=== PATIENT | female | born 1975 | race Caucasian/White ===

== ENCOUNTER 2016-09-25 10:29 | Outpatient (CLI) | payer BC, MEDICAID | END 2016-09-25 11:25 | disposition home or self-care (01) | LOC: LC 10:29 | PROVIDERS: ATTEND Obstetrics & Gynecology | PROC: 4A1HXCZ Monitoring of Products of Conception, Cardiac Rate, External Approach (ICD-10-PCS; principal; 2016-09-25) | DX: O09.523 Supervision of elderly multigravida, third trimester (principal); Z3A.37 37 weeks gestation of pregnancy | CPT/HCPCS: 59025 ==

== ENCOUNTER 2016-10-08 08:40 | Inpatient (IN) | payer OTHER, MEDICAID ==
[2016-10-08 09:56] LABS: APPEARANCE,URINE CLOUDY; BILIRUBIN,URINE NEGATIVE (NEGATIVE); GLUCOSE, URINE NEGATIVE (NEGATIVE); KETONES,URINE 20 mg/dL (NEGATIVE); LEUKOCYTE ESTERASE,URINE TRACE (NEGATIVE); NITRITE,URINE NEGATIVE (NEGATIVE); PROTEIN,URINE 30 mg/dL (NEGATIVE); URINE SPECIFIC GRAVITY 1.024; UROBILINOGEN,URINE NEGATIVE mg/dL (<2.0)
[2016-10-08 10:14] LABS: URINE BARBITURATES SCREEN NEGATIVE; URINE METHADONE SCREEN NEGATIVE; URINE OPIATES LOW NEGATIVE; URINE PHENCYCLIDINE SCREEN NEGATIVE
[2016-10-08] MEDS ORDERED: RINGERS SOLUTION,LACTATED 1,000 ML IV PRN (11:32)
[2016-10-08] MEDS ORDERED: PENICILLIN G POTASSIUM 5,000,000 UNIT in DEXTROSE 5%-WATER 100 ML IV ONE (11:51)
[2016-10-08] MEDS ORDERED: MISOPROSTOL 0.2 MG TABLET ONE (11:53)
[2016-10-08] MEDS ORDERED: PENICILLIN G-K 5 MILLION UNIT VIAL ONE (11:53)
[2016-10-08] MEDS ORDERED: LIDOCAINE 1% INJ-PF (10 MG/ML) 30 ML SDV ONE (11:54)
[2016-10-08] MEDS ORDERED: OXYTOCIN/NORMAL SALINE 20 UNIT/1,000 ML RTUINJ ONE (11:54)
[2016-10-08 12:00] LABS: ABSOLUTE LYMPHOCYTES (AUTO) 0.9 10^3/uL (0.5-4.7); ABSOLUTE MONOCYTES (AUTO) 0.5 10^3/uL (0.1-1.4); ABSOLUTE NEUT (AUTO) 15.2 10^3/uL (1.7-8.2); BASOPHILS % (AUTO) 0.3 % (0-2); EOSINOPHILS % (AUTO) 0.1 % (0-6); HEMATOCRIT 37.1 % (36.0-47.0); HEMOGLOBIN 12.4 g/dL (12.0-15.5); HGB HCT DIFFERENCE 0.1; LYMPHOCYTES % (AUTO) 5.4 % (13-45); MEAN CORPUSCULAR HEMOGLOBIN 30.2 pg (27.0-33.4); MEAN CORPUSCULAR HGB CONC 33.5 g/dL (32.0-36.0); MEAN CORPUSCULAR VOLUME 90 fl (80-97); MONOCYTES % (AUTO) 3.1 % (3-13); RED BLOOD COUNT 4.11 10^6/uL (3.72-5.28); RED CELL DISTRIBUTION WIDTH 13.7 % (11.5-14.0); SEGMENTED NEUTROPHILS % (AUTO) 91.1 % (42-78); WHITE BLOOD COUNT 16.6 10^3/uL (4.0-10.5)
[2016-10-08] MEDS ORDERED: FENTANYL/BUPIVACAINE/NS/PF 0 MCG/0 ML RTUINJ EPI ONE (12:30)
[2016-10-08] MEDS ORDERED: PHENYLEPHRINE HCL INJ/PF 10 MG/1 ML SDV ONE (12:30)
[2016-10-08] MEDS ORDERED: EPHEDRINE SULFATE INJ 50 MG/1 ML AMPULE ONE (12:30)
[2016-10-08] MEDS ORDERED: FENTANYL CITRATE INJ/PF 100 MCG/2 ML AMPUL ONE (12:30)
[2016-10-08] MEDS ORDERED: BUPIVACAINE HCL 0.25 % INJ/PF (2.5 MG/1 ML) 30 ML VIAL ONE (12:30)
[2016-10-08] MEDS ORDERED: FENTANYL CITRATE INJ/PF 100 MCG/2 ML AMPUL IV PRN (12:34)
[2016-10-08] MEDS ORDERED: EPHEDRINE SULFATE INJ 50 MG/1 ML AMPULE IV PRN (12:34)
[2016-10-08] MEDS ORDERED: BUPIVACAINE HCL 0.25 % INJ/PF (2.5 MG/1 ML) 30 ML VIAL INFIL PRN (12:34)
[2016-10-08] MEDS ORDERED: BENZOIN/ALOE VERA/STORAX/TOLU TINCTURE 60 ML TP PRN (12:34)
[2016-10-08] MEDS ORDERED: FENTANYL/BUPIVACAINE/NS/PF 100 ML EPI PRN (12:34)
[2016-10-08] MEDS ORDERED: LIDOCAINE 1% INJ-PF (10 MG/ML) 30 ML SDV INJ PRN (12:35)
[2016-10-08] MEDS ORDERED: OXYTOCIN/NORMAL SALINE 1,000 ML IV PRN ×2 (12:35→15:35)
[2016-10-08] MEDS ORDERED: MISOPROSTOL 0.2 MG TABLET PR PRN (12:35)
[2016-10-08] MEDS ORDERED: IBUPROFEN 800 MG TABLET ONE (14:26)
[2016-10-08] MEDS ORDERED: DIPH/PERTUSS(ACELL)/TETANUS VAC/PF 0.5 ML SYR (>=10YO) IM PRN (15:35)
[2016-10-08] MEDS ORDERED: BENZOCAINE/MENTHOL AEROSOL SPRAY 56 ML TOP PRN (15:35)
[2016-10-08] MEDS ORDERED: DIBUCAINE 1% OINTMENT 28 GM TP PRN (15:35)
[2016-10-08] MEDS ORDERED: MEASLES,MUMPS&RUBELLA VACC/PF 0.5 ML VIAL SUBCUT PRN (15:35)
[2016-10-08] MEDS ORDERED: ACETAMINOPHEN WITH CODEINE #3 TABLET PO PRN ×2 (15:35→20:07)
[2016-10-08] MEDS ORDERED: ZOLPIDEM TARTRATE 5 MG TABLET PO PRN (15:35)
--- NOTE | 2016-10-08 16:20 | Admission Physical ---
Datetime Report Generated by CPN: 10/08/2016 16:20 CURRENT ADMISSION Chief Complaint: Uterine Contractions Indication for Induction: Not Applicable Admit Plan: Admit to Unit; Initiate Labor Protocol ALLERGIES Medication Allergies: No Medication Allergies: No Known Allergies (09/25/2016) Latex: No Latex Allergies OBSTETRICAL HISTORY EDC: 10/13/2016 00:00 : 5 Para: 4 Term: 4 : 0 SAB: 0 IAB: 0 Ectopic: 0 Livin Cesareans: 0 VBACs: 0 Multiple Births: 0 Gestational Diabetes: No Rh Sensitization: No Incompetent Cervix: No ALIDA: No Infertility: No ART Treatment: No Uterine Anomaly: No IUGR: No Hx Previous C/S: No Macrosomia: No Hx Loss/Stillborn: No PIH: No Hx : No Placenta Previa/Abruption: No Depression/PP Depression: No PTL/PROM: No Post Hemorrhage: No SEE RECORDS Alcohol: No Marijuana : No Cocaine: No Other Illicit Drugs: No Cigarettes: Never Smoker. 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 Heart Disease: No Hosp/Surgery: No Autoimmune Disorder: No Anesthetic Complications: No Kidney Disease: No Abnormal Pap Smear: No Neuro/Epilepsy: No Psychiatric Disorders: No Other Medical Diseases: No Hepatitis/Liver Disease: No Significant Family History: No Varicosities/Phlebitis: No Trauma/Violence : No Thyroid Dysfunction: No INFECTIOUS HISTORY Gonorrhea: No Genital Herpes: No Chlamydia: No Tuberculosis: No Syphilis: No Hepatitis: No HIV/AIDS Exposure: No Rash or Viral Illness: No HPV: No PHYSICAL EXAM General: Normal HEENT: Normal Neurologic: Normal Thyroid: Deferred Heart: Normal Lungs: Normal Breast: Deferred Back: Normal Abdomen: Normal Genitourinary Exam: Normal Extremities: Normal DTRs: Normal Pelvic Type: Adequate Vital Signs: Reviewed; Within Normal Limits VAGINAL EXAM Dilatation: 5 Effacement: 80 Station: -1 MEMBRANES Membranes: Intact FETUS A EGA: 39.2 Monitoring: External US FHR- Baseline: 140 Variability: Moderate 6-25bpm Accelerations: 15X15 FHR Category: Category II FHR Comments: Spontaneous 6 min deccel to 80's Presentation: Vertex Admit Comment: Will admit PLANS FOR LABOR AND DELIVERY Labor and Delivery: None Pain Management: Epidural Feeding Preference: Breast Benefit of Breast Feed Discussed: Yes INFORMED CONSENT Signature: with User ID: [email or web address]
[2016-10-08] MEDS: PENICILLIN G POTASSIUM 2,500,000 UNIT in DEXTROSE 5%-WATER 50 ML IV SCH ×2 (16:44→19:51)
[2016-10-08] MEDS: DOCUSATE SODIUM 100 MG CAPSULE PO SCH (17:03)
[2016-10-08] MEDS: FERROUS SULFATE 325 MG TABLET PO SCH (17:03)
[2016-10-08] MEDS: IBUPROFEN 800 MG TABLET PO SCH (21:11)
--- NOTE | 2016-10-08 21:56 | EKG REPORT ---
SEVERITY:- OTHERWISE NORMAL ECG - SINUS RHYTHM ATRIAL PREMATURE COMPLEX : Confirmed by: Geo Almaraz MD 08-Oct-2016 21:55:35
[2016-10-09] MEDS: IBUPROFEN 800 MG TABLET PO SCH ×3 (05:56→21:34)
[2016-10-09 07:51] LABS: HEMATOCRIT 36.2 % (36.0-47.0); HEMOGLOBIN 11.9 g/dL (12.0-15.5); HGB HCT DIFFERENCE -0.5; MEAN CORPUSCULAR HEMOGLOBIN 29.7 pg (27.0-33.4); MEAN CORPUSCULAR HGB CONC 32.8 g/dL (32.0-36.0); MEAN CORPUSCULAR VOLUME 90 fl (80-97); RED BLOOD COUNT 4.01 10^6/uL (3.72-5.28); WHITE BLOOD COUNT 13.6 10^3/uL (4.0-10.5)
--- NOTE | 2016-10-09 09:09 | PDOC PROGRESS REPORT ---
Subjective-OB Subjective: Post Delivery Day: 41 year old. Denies any needs at this time Doing well, holding baby, breast feeding, eating well, scant lochia, ambulating , voiding Physical Exam (OB) Vital Signs: Temp Pulse Resp BP Pulse Ox 98.2 F 62 16 120/72 100 10/09/16 07:45 10/09/16 07:45 10/09/16 07:45 10/09/16 07:45 10/09/16 07:45 Intake & Output 10/08/16 10/09/16 10/10/16 06:59 06:59 06:59 Intake Total 480 Balance 480 Weight 109.18 kg - PIH/Pre-Eclampsia DTR's: 2 + Clonus: Negative Headache: Absent Epigastric Pain: No Visual Changes: No - Lochia Lochia Amount: Scant < 10 ml Lochia Color: Rubra/Red - Abdomen Description: Tender, Soft Hernia Present: No Fundal Description: Firm, Midline Fundal Height: u/u - u/2 Objective-Diagnostic Laboratory: 10/09/16 07:12 10/08/16 10/08/16 10/08/16 08:55 11:49 11:49 WBC 16.6 H RBC 4.11 Hgb 12.4 Hct 37.1 MCV 90 MCH 30.2 MCHC 33.5 RDW 13.7 Plt Count 223 Seg Neutrophils % 91.1 H Lymphocytes % 5.4 L Monocytes % 3.1 Eosinophils % 0.1 Basophils % 0.3 Absolute Neutrophils 15.2 H Absolute Lymphocytes 0.9 Absolute Monocytes 0.5 Absolute Eosinophils 0.0 Absolute Basophils 0.0 Urine Color DARK YELLOW Urine Appearance CLOUDY Urine pH 6.0 Ur Specific Harlan 1.024 Urine Protein 30 H Urine Glucose (UA) NEGATIVE Urine Ketones 20 H Urine Blood NEGATIVE Urine Nitrite NEGATIVE Ur Leukocyte Esterase TRACE H Blood Type A POSITIVE Antibody Screen NEGATIVE 10/09/16 07:12 WBC 13.6 H RBC 4.01 Hgb 11.9 L Hct 36.2 MCV 90 MCH 29.7 MCHC 32.8 RDW 14.0 Plt Count 221 Seg Neutrophils % Lymphocytes % Monocytes % Eosinophils % Basophils % Absolute Neutrophils Absolute Lymphocytes Absolute Monocytes Absolute Eosinophils Absolute Basophils Urine Color Urine Appearance Urine pH Ur Specific Harlan Urine Protein Urine Glucose (UA) Urine Ketones Urine Blood Urine Nitrite Ur Leukocyte Esterase Blood Type Antibody Screen Assessment and Plan(PN) - Assessment and Plan (1) GBS (group B Streptococcus carrier), +RV culture, currently Is this a current diagnosis for this admission?: Yes (2) Normal vaginal delivery Is this a current diagnosis for this admission?: Yes - Time Spent with Patient Time with patient: Less than 15 minutes Medications reviewed and adjusted accordingly: Yes - Disposition Anticipated Discharge: Home Within: within 24 hours
[2016-10-09] MEDS: FERROUS SULFATE 325 MG TABLET PO SCH ×2 (09:46→17:58)
[2016-10-09] MEDS: PRENATAL VITAMIN W-O CA NO5/FE FUMARATE/FA CAPSULE PO SCH (09:47)
[2016-10-09] MEDS: SENNOSIDES/DOCUSATE 8.6-50 MG 1 EACH TABLET PO SCH (09:47)
[2016-10-09] MEDS: DOCUSATE SODIUM 100 MG CAPSULE PO SCH ×2 (09:47→17:58)
[2016-10-10] MEDS: IBUPROFEN 800 MG TABLET PO SCH ×2 (06:40→13:02)
[2016-10-10] MEDS: FERROUS SULFATE 325 MG TABLET PO SCH (08:48)
[2016-10-10] MEDS: PRENATAL VITAMIN W-O CA NO5/FE FUMARATE/FA CAPSULE PO SCH (08:49)
[2016-10-10] MEDS: SENNOSIDES/DOCUSATE 8.6-50 MG 1 EACH TABLET PO SCH (08:49)
[2016-10-10] MEDS: DOCUSATE SODIUM 100 MG CAPSULE PO SCH (08:49)
--- NOTE | 2016-10-10 10:06 | PDOC DISCHARGE SUMMARY ---
Final Diagnosis Discharge Date: 10/10/16 - Final Diagnosis (1) GBS (group B Streptococcus carrier), +RV culture, currently Is this a current diagnosis for this admission?: Yes (2) Normal vaginal delivery Is this a current diagnosis for this admission?: Yes Discharge Data - Discharge Medication Home Medications: No Home Medications 09/25/16 Reason(s) for Admission: Onset of Labor Procedures: NST Intrapartum Procedure(s): Spontaneous Vaginal Delivery Laceration-Degree: 1st - Diagnosis Test Laboratory: Temp Pulse Resp BP Pulse Ox 98.1 F 69 15 124/76 100 10/10/16 08:04 10/10/16 08:04 10/10/16 08:04 10/10/16 08:04 10/10/16 08:04 10/08/16 10/08/16 10/09/16 08:55 11:49 07:12 RBC 4.11 4.01 Hgb 12.4 11.9 L Hct 37.1 36.2 Urine Opiates Screen NEGATIVE - Discharge information/Instructions Discharge Activity: Activity As Tolerated Discharge Diet: Regular Disposition: HOME, SELF-CARE Follow up with: [facility] in: 4
[2016-10-10 10:45] VITALS: BP 120/72
--- NOTE | 2016-10-11 15:17 | Delivery Summary ---
Del Sum A-C Datetime Report Generated by CPN: 10/11/2016 15:17 DELIVERY PERSONNEL DELIVERY PERSONNEL: [phone] Delivery Doctor:: Param Brown, DO Labor and Delivery Nurse:: Fabi Linares RNletterset press set up operator Nurse:: Flakita Sher RN Extension Forester:: Rebecca Jeffrey RN Nursery Nurse:: Katarzyna Escalera RN Oracle Data Warehouse Developer/RISK ENGINEER: Anitha Haskins, OVER SHORT AND DAMAGE CLERK MATERNAL INFORMATION Delivery Anesthesia: None Medications After Delivery: Pitocin Drip 20 Units/1000ml NSS Estimated Blood Loss (ml): 250 Maternal Complications: None Provider Comments: of viable female in OP position Placenta delievered spontaneous and intact with 3v cord Fundus firm after Cytotec 1000mcg LABOR SUMMARY EDC: 10/13/2016 00:00 No. Babies in Womb: 1 Attempted: No Labor Anesthesia: None LABOR INFORMATION Reason for Induction: Not Applicable Oxytocin: N/A Group B Beta Strep: Positive Antibiotics # of Doses: 1 Name of Antibiotic Given: PCN Steroids Given: None Reason Steroids Not Administered: Not Applicable MEMBRANES Membranes Rupture Method: Artificial Rupture of Membranes: 10/08/2016 12:56 Length of Rupture (hr): 1.17 Amniotic Fluid Color: Bloody Amniotic Fluid Amount: Scant Amniotic Fluid Odor: None STAGES OF LABOR Stage 3 hr: 0 Stage 3 min: 3 VAGINAL DELIVERY Episiotomy: None Laceration Extension: N/A Other Laceration: clitoral Laceration Repair: Yes Laceration Repair Note: repaired with 3-0 chromic in usual fashion with good hemostasis BABY A INFORMATION Delivery Date/Time: 10/08/2016 14:06 Method of Delivery: Vaginal Born in Route : No : N/A Forceps: N/A Vacuum Extraction: N/A Shoulder Dystocia : No PRESENTATION/POSITION BABY A Presentation: Cephalic Cephalic Presentation: Vertex Vertex Position: Occiput posterior Breech Presentation: N/A PLACENTA INFORMATION BABY A Placenta Delivery Time : 10/08/2016 14:09 Placenta Method of Delivery: Spontaneous Placenta Status: Delivered SCORES BABY A Heart Rate 1 min: >100 bpm Resp Effort 1 min: Good Cry Reflex Irritability 1 min: Cough or Sneeze or Pulls Away Muscle Tone 1 min: Active Motion Color 1 min: Body Colliers, Extremities Blue Resuscitation Effort 1 min: Tactile Stimulation SCORE 1 MIN: 9 Heart Rate 5 min: >100 bpm Resp Effort 5 min: Good Cry Reflex Irritability 5 min: Cough or Sneeze or Pulls Away Muscle Tone 5 min: Active Motion Color 5 min: Body Colliers, Extremities Blue Resuscitation Effort 5 min: Tactile Stimulation SCORE 5 MIN: 9 INFORMATION BABY A Gestational Age at Delivery: 39.2 Gestational Status: Full Term- 39- 40.6 Weeks Infant Outcome : Liveborn Condition : Stable Infant Sex: Female IDENTIFICATION BABY A Infant Verification Date/Time: 10/08/2016 15:14 ID Band Number: [id number] Mother's Name Verified: Yes RN Verifying : HJuliette Hudson RN/HJuliette Linares RN WEIGHT/LENGTH BABY A Birthweight (gm): 2380 Weight (lb): 5 Weight (oz): 4 Infant Length (in): 18.50 Infant Length (cm): 46.99 CORD INFORMATION BABY A No. Cord Vessels: 3 Nuchal Cord : N/A ASSESSMENT BABY A Skin to Skin: Yes Skin to Skin: Yes Skin to Skin: Yes Skin to Skin: Yes Skin to Skin: Yes Skin to Skin Time (min): 20 BABY B INFORMATION : N/A SIGNATURES Signature: with User ID: [email or web address]
== END 2016-10-10 12:55 | disposition home or self-care (01) | DRG 775 ==
LOC: LC 08:40 → LR 11:33 → 2S 16:11
PROVIDERS: ADMIT Obstetrics & Gynecology; ATTEND Obstetrics & Gynecology
PROC: 10E0XZZ Delivery of Products of Conception, External Approach (ICD-10-PCS; principal; 2016-10-08)
PROC: 0HQ9XZZ Repair Perineum Skin, External Approach (ICD-10-PCS; 2016-10-08)
PROC: 10907ZC Drainage of Amniotic Fluid, Therapeutic from Products of Conception, Via Natural or Artificial Opening (ICD-10-PCS; 2016-10-08)
PROC: 4A1HXCZ Monitoring of Products of Conception, Cardiac Rate, External Approach (ICD-10-PCS; 2016-10-08)
DX: O99.824 Streptococcus B carrier state complicating childbirth (principal); O70.0 First degree perineal laceration during delivery; Z3A.39 39 weeks gestation of pregnancy; Z37.0 Single live birth
CPT/HCPCS: 36415; 80307; 81005; 85025; 85027; 86592; 86850; 86900; 86901; 88307; 93005; 93010; J2370; J2540; J2590; J3010; J3490

== ENCOUNTER 2017-08-30 14:33 | Emergency (ER) | payer MEDICAID, OTHER ==
[2017-08-30] MEDS ORDERED: NORMAL SALINE 1000 ML 1,000 ML IV ONE (15:14)
[2017-08-30] MEDS ORDERED: ACETAMINOPHEN 325 MG TABLET PO ONE (15:14)
--- NOTE | 2017-08-30 15:17 | ER Document Report ---
ED Medical Screen (RME) - General Chief Complaint: Fever Stated Complaint: RIGHT SIDE FLANK PAIN Time Seen by Provider: 08/30/17 15:08 Notes: 42-year-old female with history of chronic pyelonephritis presents emergency department complaining of shortness of breath, tightness in her chest, swelling in her legs for the past 2 weeks associated with right flank pain and fevers and chills, temperature was as high as 102.1 at home. Denies vomiting or diarrhea. Patient is concerned both for a flareup of her chronic pyelonephritis with possible sepsis as well as the possibility of congestive heart failure as her father has congestive heart failure and her daughter had congestive heart failure from pulmonary artery stenosis. TRAVEL OUTSIDE OF THE [place] IN LAST 30 DAYS: No - Related Data Allergies/Adverse Reactions: No Known Allergies Allergy (Verified 08/30/17 14:36) Past Medical History - General Information source: Patient - Social History Cigarette use (# per day): No Chew tobacco use (# tins/day): No Frequency of alcohol use: None Drug Abuse: None Family history: CAD Renal/ Medical History: Denies: Hx Peritoneal Dialysis Review of Systems - Review of Systems Constitutional: See HPI, Fever EENT: No symptoms reported Cardiovascular: See HPI Respiratory: See HPI Gastrointestinal: denies: Abdominal pain Genitourinary: See HPI, Flank pain Physical Exam - Vital signs Vitals: Temp Pulse BP Pulse Ox 100.6 F H 90 139/77 H 97 08/30/17 14:40 08/30/17 14:40 08/30/17 14:40 08/30/17 14:40 Interpretation: Febrile - General General appearance: Alert, Anxious In distress: Mild - HEENT Head: Normocephalic, Atraumatic Eyes: Normal Pupils: PERRL - Respiratory Respiratory status: No respiratory distress Chest status: Nontender Breath sounds: Normal Chest palpation: Normal - Cardiovascular Rhythm: Regular Heart sounds: Normal auscultation Murmur: No Course - Vital Signs Vital signs: Temp Pulse Resp BP Pulse Ox 100.6 F H 90 139/77 H 97 08/30/17 14:40 08/30/17 14:40 08/30/17 14:40 08/30/17 14:40 Doctor's Discharge - Discharge Referrals: COLLETTE ESCALANTE MD [Primary Care Provider] - Follow up as needed
[2017-08-30 16:05] LABS: HEMATOCRIT 34.5 % (36.0-47.0); HEMOGLOBIN 11.9 g/dL (12.0-15.5); MEAN CORPUSCULAR HEMOGLOBIN 29.3 pg (27.0-33.4); MEAN CORPUSCULAR HGB CONC 34.4 g/dL (32.0-36.0); MEAN CORPUSCULAR VOLUME 85 fl (80-97); PLATELET COUNT 156 10^3/uL (150-450); RED BLOOD COUNT 4.04 10^6/uL (3.72-5.28); RED CELL DISTRIBUTION WIDTH 13.4 % (11.5-14.0)
[2017-08-30 16:10] LABS: INTERNATIONAL RATION (INR) 0.96; PROTHROMBIN TIME 13.3 SEC (11.4-15.4)
[2017-08-30 16:23] LABS: ALANINE AMINOTRANSFERASE 33 U/L (9-52); ALBUMIN 3.4 g/dL (3.5-5.0); ALKALINE PHOSPHATASE 150 U/L (38-126); ANION GAP 12 (5-19); ASPARTATE AMINO TRANSFERASE 41 U/L (14-36); BILIRUBIN,DIRECT 0.9 mg/dL (0.0-0.4); BILIRUBIN,TOTAL 1.5 mg/dL (0.2-1.3); BLOOD UREA NITROGEN 10 mg/dL (7-20); CALCIUM 8.8 mg/dL (8.4-10.2); CARBON DIOXIDE 18 mmol/L (22-30); CHLORIDE 105 mmol/L (98-107); GLUCOSE 88 mg/dL (75-110); POTASSIUM 4.1 mmol/L (3.6-5.0); SODIUM 135.4 mmol/L (137-145); TOTAL PROTEIN 6.3 g/dL (6.3-8.2)
[2017-08-30 16:26] LABS: APPEARANCE,URINE CLOUDY; BILIRUBIN,URINE SMALL (NEGATIVE); GLUCOSE, URINE NEGATIVE (NEGATIVE); KETONES,URINE TRACE mg/dL (NEGATIVE); LEUKOCYTE ESTERASE,URINE MODERATE (NEGATIVE); NITRITE,URINE NEGATIVE (NEGATIVE); PROTEIN,URINE 100 mg/dL (NEGATIVE); URINE SPECIFIC GRAVITY 1.023
[2017-08-30 16:28] LABS: COLOR,URINE DARK YELLOW
--- NOTE | 2017-08-30 16:28 | RADIOLOGY REPORT (SQ) ---
EXAM DESCRIPTION: CHEST 2 VIEWS COMPLETED DATE/TIME: 08/30/2017 4:04 pm REASON FOR STUDY: fever, SOB COMPARISON: None. EXAM PARAMETERS: NUMBER OF VIEWS: two views TECHNIQUE: Digital Frontal and Lateral radiographic views of the chest acquired. RADIATION DOSE: NA LIMITATIONS: none FINDINGS: LUNGS AND PLEURA: No opacities, masses or pneumothorax. No pleural effusion. MEDIASTINUM AND HILAR STRUCTURES: No masses or contour abnormalities. HEART AND VASCULAR STRUCTURES: Heart normal size. No evidence for failure. BONES: No acute findings. HARDWARE: None in the chest. OTHER: No other significant finding. IMPRESSION: NO ACUTE RADIOGRAPHIC FINDING IN THE CHEST. TECHNICAL DOCUMENTATION: JOB ID: [id number] [employer]- All Rights Reserved Reading location - IP/workstation name: [email or web address]
[2017-08-30 16:34] LABS: NT PRO BNP 1880 pg/mL (<125); TROPONIN I < 0.012 ng/mL
[2017-08-30 16:44] LABS: ABSOLUTE LYMPHOCYTES# (MANUAL) 0.3 10^3/uL (0.5-4.7); ABSOLUTE MONOCYTES # (MANUAL) 0.3 10^3/uL (0.1-1.4); ABSOLUTE NEUTROPHILS# (MANUAL) 8.5 10^3/uL (1.7-8.2); BASOPHILS % (MANUAL) 0 % (0-2); EOSINOPHILS % (MANUAL) 0 % (0-6); LYMPHOCYTES % (MANUAL) 3 % (13-45); MONOCYTES % (MANUAL) 3 % (3-13); SEGMENTED NEUTROPHILS % (MAN) 94 % (42-78); TOTAL CELLS COUNTED 100
[2017-08-30 16:47] LABS: PLATELET COMMENT ADEQUATE; POLYCHROMASIA SLIGHT; TOXIC VACUOLATION PRESENT
[2017-08-30 17:21] LABS: VENOUS BLOOD BASE EXCESS -4.8 mmol/L; VENOUS BLOOD HCO3 18.4 mmol/L (20-32); VENOUS BLOOD PCO2 28.6 mmHg (35-63); VENOUS BLOOD PH 7.43 (7.30-7.42)
[2017-08-30] MEDS ORDERED: CEFTRIAXONE 2 GM/D5W RTU 2 GM/50 ML RTUPB IV ONE (19:13)
--- NOTE | 2017-08-30 19:18 | ER Document Report ---
ED General - General Chief Complaint: Fever Stated Complaint: RIGHT SIDE FLANK PAIN Time Seen by Provider: 08/30/17 15:08 Mode of Arrival: Ambulatory Information source: Patient Notes: This is a 42-year-old female with history of multiple pyelonephritis in the past (nonrecent) who presents to the emergency room with fever, right flank pain , shortness of breath, bilateral lower extremity swelling, nausea, vomiting and decreased p.o. intake. Patient is currently on no medicines and has no allergies. She does report starting her period today OBHx: last one year ago TRAVEL OUTSIDE OF THE [place] IN LAST 30 DAYS: No - HPI Onset: Just prior to arrival Onset/Duration: Gradual Quality of pain: Dull Severity: Moderate Pain Level: 2 Associated symptoms: Chills, Fever, Leg swelling, Nausea, Vomiting, Shortness of breath Exacerbated by: Denies Relieved by: Denies Similar symptoms previously: No Recently seen / treated by doctor: No - Related Data Allergies/Adverse Reactions: No Known Allergies Allergy (Verified 08/30/17 14:36) Past Medical History - General Information source: Patient - Social History Smoking Status: Never Smoker Cigarette use (# per day): No Chew tobacco use (# tins/day): No Frequency of alcohol use: None Drug Abuse: None Lives with: Family Family History: None Patient has suicidal ideation: No Patient has homicidal ideation: No - Past Medical History Cardiac Medical History: Reports: None Pulmonary Medical History: Reports: None EENT Medical History: Reports: None Neurological Medical History: Reports: None Endocrine Medical History: Reports: None Renal/ Medical History: Reports: Other - Pyelonephritis. Denies: Hx Peritoneal Dialysis Malignancy Medical History: Reports: None GI Medical History: Reports: None Musculoskeltal Medical History: Reports None Surgical Hx: Negative Review of Systems - Review of Systems Constitutional: Chills, Fever EENT: No symptoms reported Cardiovascular: Dyspnea, Edema Respiratory: Short of breath Gastrointestinal: No symptoms reported Genitourinary: No symptoms reported Female Genitourinary: See HPI Musculoskeletal: No symptoms reported Skin: No symptoms reported Hematologic/Lymphatic: No symptoms reported Neurological/Psychological: No symptoms reported Physical Exam - Vital signs Vitals: Temp Pulse BP Pulse Ox 100.6 F H 90 139/77 H 97 08/30/17 14:40 08/30/17 14:40 08/30/17 14:40 08/30/17 14:40 Notes: Physical exam: GENERAL: 42-year-old female, alert and oriented 3, appears ill, blood pressure 135/78, O2 sat 99% on room air, heart rate 87, respiratory rate 27, temperature 100.6 orally HEAD: Atraumatic, normocephalic. EYES: Pupils equal round and reactive to light, extraocular movements intact, sclera anicteric, conjunctiva are normal. ENT: TMs normal, nares patent, oropharynx clear without exudates. Moist mucous membranes. NECK: Normal range of motion, supple without obvious mass or JVD. LUNGS: Breath sounds clear to auscultation bilaterally and equal. No wheezes rales or rhonchi. HEART: Regular rate and rhythm without murmurs, rubs or gallops. ABDOMEN: Soft, normoactive bowel sounds. Patient does have right flank pain to palpation without rebound. No masses appreciated. EXTREMITIES: Normal range of motion, no pitting or edema. No clubbing or cyanosis. NEUROLOGICAL: Cranial nerves II through XII grossly intact. Normal speech, moving all extremities. PSYCH: Normal mood, normal affect. SKIN: Warm, Dry, normal turgor, no rashes or lesions noted. Bedside ultrasound: No hydronephrosis on the right. Uterus is obviously enlarged and appears to have molar . I have discussed my concern for molar with the patient and will obtain a formal ultrasound. Additionally, I have added a beta quant to the labs. Course - Re-evaluation Re-evalutation: 08/30/17 23:39 Note: I spoke to the lab and the beta quant is greater than 1 million. I have reviewed the formal ultrasound and discussed my concerns with the radiologist. CTA of the chest shows no pulmonary emboli but there are multiple nodular lesions concerning for metastatic choriocarcinoma. 08/30/17 23:41 I discussed case with the satellite instruction facilitator here (Dr. Mike Hoskins) who recommends transfer to a tertiary care center because of concerns for metastatic choriocarcinoma. Patient has received IV ceftriaxone for pyelonephritis. Blood and urine cultures have been sent. CT of the abdomen showed no obstructive uropathy. I have discussed the findings and the concerns of cancer with the patient. She is agreeable for transfer to [place] ([facility]). I have spoken to Dr. Alfredo about the case who is willing to accept the patient in transfer to [place]. - Vital Signs Vital signs: Temp Pulse Resp BP Pulse Ox 100.6 F H 90 26 H 133/76 H 96 08/30/17 14:40 08/30/17 14:40 08/30/17 23:01 08/30/17 23:01 08/30/17 23:01 - Laboratory Result Diagrams: 08/30/17 15:32 08/30/17 15:32 Laboratory results interpreted by me: 08/30/17 08/30/17 08/30/17 15:32 15:32 15:32 Hgb 11.9 L Hct 34.5 L Seg Neuts % (Manual) 94 H Lymphocytes % (Manual) 3 L Abs Neuts (Manual) 8.5 H Abs Lymphs (Manual) 0.3 L VBG pH VBG pCO2 VBG HCO3 Sodium 135.4 L Carbon Dioxide 18 L Total Bilirubin 1.5 H Direct Bilirubin 0.9 H AST 41 H Alkaline Phosphatase 150 H NT-Pro-B Natriuret Pep Albumin 3.4 L Serum HCG, Qual POSITIVE H Beta HCG, Quant Urine Protein Urine Ketones Urine Blood Urine Bilirubin Urine Urobilinogen Ur Leukocyte Esterase 08/30/17 08/30/17 08/30/17 15:32 15:32 15:47 Hgb Hct Seg Neuts % (Manual) Lymphocytes % (Manual) Abs Neuts (Manual) Abs Lymphs (Manual) VBG pH VBG pCO2 VBG HCO3 Sodium Carbon Dioxide Total Bilirubin Direct Bilirubin AST Alkaline Phosphatase NT-Pro-B Natriuret Pep 1880 H Albumin Serum HCG, Qual Beta HCG, Quant 9545837.00 H Urine Protein 100 H Urine Ketones TRACE H Urine Blood LARGE H Urine Bilirubin SMALL H Urine Urobilinogen 4.0 H Ur Leukocyte Esterase MODERATE H 08/30/17 17:00 Hgb Hct Seg Neuts % (Manual) Lymphocytes % (Manual) Abs Neuts (Manual) Abs Lymphs (Manual) VBG pH 7.43 H VBG pCO2 28.6 L VBG HCO3 18.4 L Sodium Carbon Dioxide Total Bilirubin Direct Bilirubin AST Alkaline Phosphatase NT-Pro-B Natriuret Pep Albumin Serum HCG, Qual Beta HCG, Quant Urine Protein Urine Ketones Urine Blood Urine Bilirubin Urine Urobilinogen Ur Leukocyte Esterase - Diagnostic Test Radiology reviewed: Image reviewed, Reports reviewed - Pelvic ultrasound suggestive of molar . CTA shows no pulmonary emboli but does show multiple nodular lesions concerning for metastatic choriocarcinoma. CT of the abdomen and pelvis reveals large mass of the uterus - EKG Interpretation by Me Rate: Normal Rhythm: NSR - EKG shows normal sinus rhythm with a ventricular rate of 78, no acute ST-T wave changes Critical Care Note - Critical Care Note Total time excluding time spent on procedures (mins): 90 Discharge - Discharge Clinical Impression: Metastatic choriocarcinoma, Acute pyelonephritis Condition: Stable Disposition: [facility] Referrals: COLLETTE ESCALANTE MD [Primary Care Provider] - Follow up as needed
--- NOTE | 2017-08-30 20:17 | RADIOLOGY REPORT (SQ) ---
EXAM DESCRIPTION: U/S OB LIMITED COMPLETED DATE/TIME: 08/30/2017 8:04 pm REASON FOR STUDY: flank pain, hcg positive COMPARISON: None. TECHNIQUE: Dynamic and static grayscale images acquired of the pelvis via transabdominal approach an d recorded on PACS. Additional selected color Doppler and spectral images recorded. LIMITATIONS: Body wall acoustics. FINDINGS: UTERUS: Poorly visualized. Enlarged. ENDOMETRIAL STRIPE: Significantly thickened with cystic appearance. CERVIX: Not visualized. RIGHT OVARY AND DOPPLER: Ovary not visualized. LEFT OVARY AND DOPPLER: Ovary not visualized. FREE FLUID: None noted. OTHER: No other significant finding. MEASUREMENTS: UTERUS: Reported to measure 18.3 x 16.2 x 11.1 cm however these measurements are not documented on th e images. ENDOMETRIAL STRIPE: 8.4 cm. RIGHT OVARY: Not visualized. LEFT OVARY: Not visualized. IMPRESSION: SIGNIFICANTLY LIMITED TRANSABDOMINAL PELVIC ULTRASOUND. IMAGES APPEAR TO DEMONSTRATE MA RKED CYSTIC THICKENING OF THE ENDOMETRIAL CAVITY. GIVEN REPORTED HISTORY OF POSITIVE HCG LEVEL THIS COULD REPRESENT A MOLAR . RECOMMEND CORRELATION WITH PATIENT'S ACTUAL BETA HCG LEVEL. TECHNICAL DOCUMENTATION: JOB ID: [id number] [employer]- All Rights Reserved Rev-08/10 Reading location - IP/workstation name: [email or web address]
[2017-08-30] MEDS ORDERED: MORPHINE SULFATE 10 MG/ML INJ IV ONE (21:43)
[2017-08-30] MEDS ORDERED: IBUPROFEN 600 MG TABLET PO ONE (21:43)
[2017-08-30] MEDS ORDERED: ONDANSETRON HCL INJ/PF 4 MG/2 ML SDV IV ONE (21:44)
--- NOTE | 2017-08-30 22:29 | RADIOLOGY REPORT (SQ) ---
EXAM DESCRIPTION: CTA CHEST COMPLETED DATE/TIME: 08/30/2017 10:16 pm REASON FOR STUDY: r/o pe COMPARISON: None. TECHNIQUE: CT scan of the chest performed using helical scanning technique with dynamic intravenous contrast injection. Images reviewed with lung, soft tissue and bone windows. Reconstructed coronal and sagittal MPR images reviewed. Additional 3 dimensional post-processing performed to develop Maximal Intensity Projection images ([place] P). All images stored on PACS. All CT scanners at this facility use dose modulation, iterative reconstruction, and/or weight based d osing when appropriate to reduce radiation dose to as low as reasonably achievable (ALARA). [facility]: Dose Right [facility]: CareDose [facility]: Dose Right [facility]: Teradose 4D [facility]: [employer] CONTRAST TYPE AND DOSE: 28 mL Isovue 370- low osmolar. Contrast bolus optimized for the pulmonary arteries. Not diagnostic for the aorta. RENAL FUNCTION: None required. The patient is less than 50 years old. RADIATION DOSE: . LIMITATIONS: Timing of contrast bolus and respiratory motion. FINDINGS: LUNGS AND PLEURA: Innumerable low density pulmonary nodules scattered throughout both the right and left lung measuring up to 13 mm highly suspicious for metastatic disease. AORTA AND GREAT VESSELS: No aneurysm. Contrast bolus not optimized for the aorta. HEART: No pericardial effusion. No significant coronary artery calcifications. PULMONARY ARTERIES: No central pulmonary embolus. Nondiagnostic evaluation of lobar, segmental, and subsegmental branches. HILAR AND MEDIASTINAL STRUCTURES: No identified masses or abnormal nodes. HARDWARE: None in the chest. UPPER ABDOMEN: See separate report of the CT of the abdomen. THYROID AND OTHER SOFT TISSUES: No masses. No adenopathy. BONES: No acute or significant finding. 3D MIPS: Confirm above findings. OTHER: No other significant finding. IMPRESSION: NO CENTRAL PULMONARY EMBOLUS IDENTIFIED. NUMEROUS BILATERAL PULMONARY NODULES HIGHLY SUSPICIOUS FOR METASTATIC CHORIOCARCINOMA GIVEN PATIENT'S KNOWN MARKEDLY ELEVATED BETA HCG LEVEL AND ABNORMAL ENDOMETRIAL FINDINGS. COMMENT: Quality ID # [id number]: Final reports with documentation of one or more dose reduction techniques (e.g., Automated exposure control, adjustment of the mA and/or kV according to patient size, use of iterative reconstruction technique) TECHNICAL DOCUMENTATION: JOB ID: [id number] [employer]- All Rights Reserved Reading location - IP/workstation name: [email or web address]
--- NOTE | 2017-08-30 22:34 | RADIOLOGY REPORT (SQ) ---
EXAM DESCRIPTION: CT ABD/PELVIS WITH IV ONLY COMPLETED DATE/TIME: 08/30/2017 10:16 pm REASON FOR STUDY: Suspected right pyelo with a molar preg COMPARISON: None. TECHNIQUE: CT scan of the abdomen and pelvis performed using helical scanning technique with dynamic intravenous contrast injection. No oral contrast. Images reviewed with lung, soft tissue, and bone windows. Reconstructed coronal and sagittal MPR images reviewed. Delayed images for evaluation of the urinary system also acquired. All images stored on PACS. All CT scanners at this facility use dose modulation, iterative reconstruction, and/or weight based d osing when appropriate to reduce radiation dose to as low as reasonably achievable (ALARA). [facility]: Dose Right [facility]: CareDose [facility]: Dose Right [facility]: Teradose 4D [facility]: [employer] CONTRAST TYPE AND DOSE: contrast/concentration: Isovue 370.00 mg/ml; Total Contrast Delivered: 75.0 ml; Total Saline Delivered: 70.0 ml RENAL FUNCTION: None required. The patient is less than 50 years old. RADIATION DOSE: CT Rad equipment meets quality standard of care and radiation dose reduction techniq ues were employed. CTDIvol: 14.9 - 28.2 mGy. DLP: 3577 mGy-cm.. LIMITATIONS: None. FINDINGS: LOWER CHEST: See separate report of the CT of the chest. LIVER: Normal size. No masses. No dilated ducts. SPLEEN: Normal size. No focal lesions. PANCREAS: No masses. No significant calcifications. No adjacent inflammation or peripancreatic fluid collections. Pancreatic duct not dilated. GALLBLADDER: No identified stones by CT criteria. No inflammatory changes to suggest cholecystitis. ADRENAL GLANDS: No significant masses or asymmetry. RIGHT KIDNEY AND URETER: Heterogeneous enhancement compatible with pyelonephritis. No solid masses. No significant calcifications. No hydronephrosis or hydroureter. LEFT KIDNEY AND URETER: No solid masses. No significant calcifications. No hydronephrosis or hydr oureter. AORTA AND VESSELS: No aneurysm. No dissection. Renal arteries, SMA, celiac without stenosis. RETROPERITONEUM: No retroperitoneal adenopathy, hemorrhage or masses. BOWEL AND PERITONEAL CAVITY: No masses or inflammatory changes. No free fluid or peritoneal masses. APPENDIX: Not visualized. PELVIS: Marked endometrial thickening as seen on previous ultrasound measuring 16.5 x 9.5 x 12.7 cm ( craniocaudal by AP by transverse) with overall heterogeneous appearance. No apparent disruption of t he myometrium. No free fluid. Normal bladder. ABDOMINAL WALL: No masses. No hernias. BONES: No significant or acute findings. OTHER: No other significant finding. IMPRESSION: MARKED ENDOMETRIAL THICKENING CORRESPONDING TO FINDINGS ON PREVIOUS ULTRASOUND. 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 GYNECOLOGIC AND ONCOLOGIC CONSULTATION IS RECOMMENDED. HETEROGENEOUS ENHANCEMENT OF THE RIGHT KIDNEY COMPATIBLE WITH PYELONEPHRITIS. TECHNICAL DOCUMENTATION: JOB ID: [id number] Quality ID # [id number]: Final reports with documentation of one or more dose reduction techniques (e.g., Au tomated exposure control, adjustment of the mA and/or kV according to patient size, use of iterative reconstruction technique) 2010 [employer]- All Rights Reserved Reading location - IP/workstation name: [email or web address]
--- NOTE | 2017-08-30 22:57 | EKG REPORT ---
SEVERITY:- NORMAL ECG - SINUS RHYTHM : Confirmed by: Suzanne Hart MD 30-Aug-2017 22:57:09
[2017-08-31 00:43] VITALS: BP 101/60
== END 2017-08-31 00:45 | disposition short-term general hospital (02) ==
LOC: ER 14:33
DX: C58 Malignant neoplasm of placenta (principal); N10 Acute pyelonephritis; R50.9 Fever, unspecified; R10.9 Unspecified abdominal pain; R06.02 Shortness of breath; M79.89 Other specified soft tissue disorders; R11.2 Nausea with vomiting, unspecified; R63.0 Anorexia; R06.00 Dyspnea, unspecified
CPT/HCPCS: 93005; 99291; 99292; 96361; 96375; 96365; 36415; 87040; 87086; 82553; 82962; 82550; 84702; 84703; 85025; 85610; 87077; 87088; 80053; 81001; 84484; 87186; 82803; 83605; 83880; 71046; 76815; 71275; 74177; 93010; J2270; J2405; J7030; J0696

== ENCOUNTER → 2017-09-25 | Outpatient (CLI) | payer OTHER, MEDICAID ==
[2017-09-25 18:24] LABS: ABSOLUTE EOSINOPHILS # (AUTO) 0.1 10^3/uL (0.0-0.6); ABSOLUTE LYMPHOCYTES (AUTO) 1.3 10^3/uL (0.5-4.7); ABSOLUTE MONOCYTES (AUTO) 0.3 10^3/uL (0.1-1.4); ABSOLUTE NEUT (AUTO) 3.7 10^3/uL (1.7-8.2); BASOPHILS % (AUTO) 0.2 % (0-2); EOSINOPHILS % (AUTO) 2.7 % (0-6); HEMOGLOBIN 10.5 g/dL (12.0-15.5); LYMPHOCYTES % (AUTO) 23.3 % (13-45); MEAN CORPUSCULAR HEMOGLOBIN 28.4 pg (27.0-33.4); MEAN CORPUSCULAR HGB CONC 33.9 g/dL (32.0-36.0); MEAN CORPUSCULAR VOLUME 84 fl (80-97); PLATELET COUNT 178 10^3/uL (150-450); RED CELL DISTRIBUTION WIDTH 14.1 % (11.5-14.0); SEGMENTED NEUTROPHILS % (AUTO) 67.8 % (42-78); TOTAL CELLS COUNTED % (AUTO) 100 %; WHITE BLOOD COUNT 5.5 10^3/uL (4.0-10.5)
== END ==
LOC: OD 17:30
PROVIDERS: ATTEND Obstetrics & Gynecology Gynecologic Oncology
DX: O01.9 Hydatidiform mole, unspecified (principal)
CPT/HCPCS: 36415; 84702; 85025